=== PATIENT | female | born 1965 | race Caucasian/White ===

== ENCOUNTER → 2021-04-13 | Outpatient (CLI) | payer SELFPAY ==
[~2021-04-13] MED LIST: CARI350T PO; ESOM20CA PO; GABA300C18 PO; IBUP-1027 PO; IOHEXOL 180 MG/ML 10 ML VIAL. ONE; MAGN500C10 PO; methylPREDNISolone ACETATE 40 MG/ML VIAL. ONE; methylPREDNISolone ACETATE 80 MG/ML VIAL. ONE
--- NOTE | 2021-04-13 13:02 | PDOC1 ---
INITIAL PAIN CONSULT DATE OF SERVICE: DOS: DATE: 04/13/21 TIME: 12:54 CHIEF COMPLAINT: Chief Complaint: Mid back pain HISTORY OF PRESENT ILLNESS: 56-year-old female presents history of pain mid to mid lower back for proximally 8 years total but worse over the past year to 2 years and much worse over the past 2 weeks or so. 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 Patient reports now that the pain is more in the mid to lower back is worse with changing positions disturb sleep least once or twice a night walking standing bending or stooping repetitive motions with the mid back as well. Patient has had physical therapy in the past also trigger point injections epidural injections and is currently exercising and doing daily stretching. Patient reports that the injections had helped the pain to some extent at the daily stretching keeps her functional but has not decreased the pain significantly patient is taking hydrocodone as well as Soma and gabapentin all of which do decrease the pain and she is taking those currently. Patient rates her disability rating 0-10 10 being the worst is a 5 with him home responsibilities 8 with recreation and occupation 1 with social activity 1 with sexual behavior 6 with self-care and 1 with life support activities patient reports that driving especially increases the pain. Patient scribes the pain as throbbing stabbing hot cramping burning worse at night worse with change the position tingling and numbness in the back itself with radiating pain bilaterally right and left anterolateral flank and occasionally into the inferior lateral rib cages. Patient reports no loss of motor function of the upper or lower extremities or weakness. PAST MEDICAL HISTORY: PMH: Gastroparesis, orthostatic hypotension, osteoporosis PREVIOUS SURGERIES: Past Surgical Hx: Posterior cervical fusion 2017, anterior cervical fusion 2011, cholecystectomy 2017, breast augmentation and hysterectomy 2005 CURRENT MEDICATIONS: Current Meds: Active Scripts Medications Dose Route/Sig Max Daily Dose Days Date Category Ibuprofen 400 Mg Tablet 400 Mg PO PRN Q6HRS PRN 04/13/21 Reported Magnesium (Magnesium Oxide) 500 Mg Capsule 650 Mg PO DAILY 04/13/21 Reported Nexium Capsule (Esomeprazole Magnesium) 20 Mg Capsule. 1 Cap PO DAILY 04/13/21 Reported Gabapentin (Gabapentin) 300 Mg Capsule 300 Mg PO PRN 04/13/21 Reported Soma (Carisoprodol) 350 Mg Tablet 350 Mg PO TID&HS 04/13/21 Reported ALLERGIES; Allergies: Coded Allergies: No Known Drug Allergies (Unverified , 04/13/21) FAMILY HISTORY: Family Hx: Heart disease in patient's father and hypertension in both parents SOCIAL HISTORY: Social Hx: Patient is under alcohol does not smoke not use any illegal illicit recreational drugs is lives with her spouse, and is a retired ICU nurse REVIEW OF SYSTEMS: ROS: Positive for those items mentioned in history of present illness, all systems are reviewed, otherwise negative ,and are complete full and well-documented on patient's chart. PHYSICAL EXAM: VS: Blood pressure is 134/75 pulse 78 respirations 16 temperature is 98.7 F height is 5 feet 7 inches weight is 143 pounds PE: PHYSICAL EXAMINATION: GENERAL: The patient is awake, alert, oriented, appropriate, very pleasant demeanor, patient accompanied by her spouse. HEENT: Shows normocephalic, atraumatic. Extraocular movements are intact and symmetrical. Oral cavity: Mucous membranes moist and pink. Dentition is intact. NECK: Shows anterior throat supple without palpable lymphadenopathy noted. Swallow reflex symmetrical. CHEST: Shows normal on inspection. Breath sounds are clear bilaterally, no rales rhonchi wheezes auscultated. HEART: Shows S1, S2 clear. No murmurs auscultated. ABDOMEN: Soft, nontender, nondistended. No palpable organomegaly is noted. No rebound or guarding demonstrated. BACK: Shows spine grossly in the midline. Normal-appearing cervical lordotic curvature. Cervical spine shows well-healed surgical scarring both anteriorly and posteriorly with range of motion shows good range of motion past 45 degrees right and left lateral is full extension and full forward flexion without significant difficulty. Posterior cervical musculature is symmetrical supple nontender with palpation bilaterally. There is slightly increased thoracic kyphosis, some minor flattening of the lumbar lordotic curvature. Lumbar arturo pinous muscles show symmetrical on inspection, on palpation shows some moderate tenderness in the upper lumbar distribution distribution of the paraspinous muscles bilaterally and also into the lower thoracic paraspinous musculature, firm and tender, but without specific trigger points, without radiation of pain. The patient has good rotational motion of the lumbar and thoracic spines, both laterally as well as extension and flexion without significant difficulty. No tenderness over the spinous processes, sacrum or sacroiliac regions. EXTREMITIES: Lower extremities show deep tendon reflexes 2+ in the patellar and tendo calcaneus tendons. Motor exam is 5 on a scale of 5 with right dorsiflexion, extension, quadriceps and hamstring flexion and 5/5 on the left. Peripheral pulses are 1+ posterior tibial. No peripheral edema is noted bilaterally. Lower extremities are warm and dry to touch, equal in color and appearance. Upper extremity show deep tendon reflexes 2+ in the bicep and triceps tendons, motor exam is strong with central office installer strength rated 5 out of 5 as is bicep and tricep flexion and symmetrical. Peripheral pulses are 2+ radial no peripheral edema is noted. SKIN: Shows warm and dry, good turgor. No edema. No sores, rashes or bruising throughout. IMPRESSION: Impression: 56-year-old female with long history mid to mid lower back pain worse over the past few weeks with a thoracic radicular pattern bilaterally. Gastroparesis History of orthostatic hypotension Plan: Options were discussed with the patient patient spouse who accompanied her visit today. We discussed conservative medical management physical therapies as well as interventional techniques. As patient has had physical therapies as well as medical management currently she would like to pursue interventional techniques. We discussed a thoracic epidural steroid injection using description as well as anatomical models to describe the procedure. Risks were discussed including but not limited to: Bleeding, infection, possibility of epidural hematoma and subsequent neurological compromise, dural puncture, headaches, spinal cord and/or nerve damage, side effects of steroid medication, and poor results regarding pain control. Patient understands and wished to proceed. Patient return to clinic in approximate 2 weeks for follow-up, or as needed, and was counseled as to return appointment activity level and side effects to be aware of. Procedure is thoracic epidural steroid injection under local anesthetic using sterile prep and drape at the T9-10 level using C-arm fluoroscopic guidance in both AP and lateral views medications injected is 120 mg Depo-Medrol +10mL preservative-free normal saline and 2 mL contrast- condition at discharge is stable patient tolerated procedure well had no complications. TERRELL CORBIN MD Apr 13, 2021 13:02
== END ==
LOC: PNCL 11:18
PROVIDERS: ATTEND Anesthesiology
DX: M54.89 Other dorsalgia (principal); M54.14 Radiculopathy, thoracic region; K31.84 Gastroparesis; M81.0 Age-related osteoporosis without current pathological fracture; Z90.49 Acquired absence of other specified parts of digestive tract; Z90.710 Acquired absence of both cervix and uterus; Z98.890 Other specified postprocedural states
CPT/HCPCS: 62321; J1030; J1040; Q9965

== ENCOUNTER → 2021-09-21 | Outpatient (CLI) | payer SELFPAY ==
--- NOTE | 2021-09-21 16:18 | PDOC4 ---
Procedure Note: ICD 10 Code: ICD 10 Code: M54.16 M51.36 Procedure Note: Patient was consented for lumbar epidural steroid injection with fluoroscopic guidance. Risks were discussed including but not limited to: Bleeding, infection, possibility of epidural hematoma and subsequent neurological compromise, dural puncture, headaches, spinal cord and/or nerve damage, side effects of steroid medication, and poor results regarding pain control. Patient understands and wished to proceed. Procedure is lumbar epidural steroid injection under local anesthetic using sterile prep and drape at the L4-5 level using C-arm fluoroscopic guidance in both AP and lateral views medications injected is 120 mg Depo-Medrol +10mL preservative-free normal saline and 2 mL contrast- condition at discharge is stable patient tolerated procedure well had no complications. TERRELL CORBIN MD Sep 21, 2021 16:18
--- NOTE | 2021-09-21 16:18 | PDOC ---
Progress Note - Pain Clinic Date of Service: DOS: DATE: 09/21/21 TIME: 16:14 Diagnosis: Dx: Thoracic radiculopathy with thoracic degenerative disc disease Lumbar radiculopathy with lumbar degenerative disc disease History or Present Illness: HPI: 56-year-old female returns for follow-up status post thoracic epidural steroid injection last seen April 13, 2021. Patient reports he did very well with but 90% improvement for about 4 months has some pain now returning in the mid to upper back with radiation around to the right and left flank but her chief complaint is new pain of low back pain with radiation of the right lower extremity posterior gluteus posterior thigh lateral thigh and calf to the knee also some in the anterior aspect as well but mostly in the posterior lateral aspect of the right thigh this is worse with walking and standing changing positions she finds her self sitting on the left side try to get the pressure off of the right side this is true with walking and she been standing more on her left leg than the ri ght as well because of the pain. Patient reports it is a 7 on scale 10 is worst over the last week for an average/and is a 4 today patient was aching dull shooting radiating again worse with activity standing walking changing positions. Patient reports that the mid upper back pain is still present and is too significant compared to the low back and right lower extremity pain patient reports no weakness of the right lower and no deficits. Patient reports no bowel or bladder incontinence. Physical Exam: VS: Blood pressure is 132/70 pulse 74 respirations 18 temperature 98.2 F weight 138 pounds PE: PHYSICAL EXAMINATION: GENERAL: The patient is awake, alert, oriented, appropriate, very pleasant in demeanor patient accompanied by her HEENT: Shows normocephalic, atraumatic. Extraocular movements are intact and symmetrical. Oral cavity: Mucous membranes moist and pink. Dentition is intact. NECK: Shows anterior throat supple without palpable lymphadenopathy noted. Swallow reflex symmetrical. CHEST: Shows normal on inspection. Breath sounds are clear bilaterally. HEART: Shows S1, S2 clear. ABDOMEN: Soft, nontender, nondistended. No palpable organomegaly is noted. No rebound or guarding demonstrated. BACK: Shows spine grossly in the midline. Normal-appearing cervical lordotic curvature. There is mildly increased thoracic kyphosis, some minor flattening of the lumbar lordotic curvature. Lumbar paraspinous muscles show symmetrical on inspection, on palpation shows some moderate tenderness diffusely throughout the upper, middle and lower distribution of the paraspinous muscles, but without specific trigger points, without radiation of pain. The patient has good rotational motion of the lumbar spine, both laterally as well as extension and flexion without significant difficulty. Moderate tenderness over the posterior superior iliac spine on the right in the superior aspect of the sacroiliac joint but without radiation, left side is nontender with palpation. EXTREMITIES: Lower extremities show deep tendon reflexes 2+ in the patellar and tendo calcaneus tendons. Motor exam is 5 on a scale of 5 with right dorsiflexion, extension, quadriceps and hamstring flexion and 5/5 on the left. Peripheral pulses are 1+ posterior tibial. No peripheral edema is noted bilaterally. Lower extremities are warm and dry to touch, equal in color and appearance. SKIN: Shows warm and dry, good turgor. No edema. No sores, rashes or bruising throughout. Procedure: Procedure: Options were discussed with the patient. Patient's old chart was reviewed as her current medication regimen updated current review of systems updated today as well. We will proceed with a lumbar epidural steroid injection today with fluoroscopic guidance. Risks were discussed including but not limited to: Bleeding, infection, possibility of epidural hematoma and subsequent neurological compromise, dural puncture, headaches, spinal cord and/or nerve damage, side effects of steroid medication, and poor results regarding pain control. Patient understands and wished to proceed. Patient will return to the clinic in approximately 2 weeks or as necessary for follow-up, was counseled as to return appointment, activity level, and side effect to be aware of. Medication Injected: Med Injected: Procedure is lumbar epidural steroid injection under local anesthetic using sterile prep and drape at the L4-5 level using C-arm fluoroscopic guidance in both AP and lateral views medications injected is 120 mg Depo-Medrol +10mL preservative-free normal saline and 2 mL contrast- condition at discharge is stable patient tolerated procedure well had no complications. Condition at Discharge: Condition at Discharge: Condition at discharge is stable, patient tolerated the procedure well and had no complications. TERRELL CORBIN MD Sep 21, 2021 16:18
== END | disposition home or self-care (01) ==
LOC: PNCL 15:28
PROVIDERS: ATTEND Anesthesiology
DX: M51.16 Intervertebral disc disorders with radiculopathy, lumbar region (principal); M51.14 Intervertebral disc disorders with radiculopathy, thoracic region; Z79.899 Other long term (current) drug therapy
CPT/HCPCS: 62323; J1030; J1040; Q9965